=== PATIENT | male | born 1945 ===

== ENCOUNTER 2017-03-09 15:58 | Emergency (ER) | payer MEDICARE, BC ==
--- NOTE | 2017-03-09 17:39 | EDM.PDOC ---
<Owen Richmond Hubert - Last Filed: 03/09/17 17:33> ED HPI GENERAL MEDICAL PROBLEM - General Chief Complaint: Back Pain or Injury Stated Complaint: POSS BRUISED RIBS, [id number] Time Seen by Provider: 03/09/17 17:25 Source of Information: Reports: Patient History Limitations: Reports: No Limitations - History of Present Illness INITIAL COMMENTS - FREE TEXT/NARRATIVE: This 71 yo male patient reports to the ED with pain in his left back and posterior ribs. 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 Since that time , the patient has been experiencing increased pain in his left ribs and has been having a difficult time taking breaths due to increased pain. Onset: Today Onset Date: 03/09/17 Onset Time: 12:30 Duration: Constant Location: Reports: Chest, Back Quality: Reports: Ache, Sharp Severity: Moderate Improves with: Reports: None Worsens with: Reports: None Associated Symptoms: Reports: No Other Symptoms Left Middle Back Pain Score (Numeric/FACES): 10 - Related Data Allergies Allergy/AdvReac Type Severity Reaction Status Date / Time oxycodone Allergy Agitation Verified 03/09/17 16:14 Home Meds: Home Meds Simvastatin [Zocor] 20 mg PO DAILY 03/09/17 [History] Tamsulosin [Flomax] 0.4 mg PO DAILY 03/09/17 [History] Warfarin 6 mg PO ASDIRECTED 03/09/17 [History] Warfarin [Coumadin] 4 mg PO ASDIRECTED 03/09/17 [History] diphenhydrAMINE [Benadryl] 50 mg PO BEDTIME 03/09/17 [History] metFORMIN HCl [Metformin HCl] 1,000 mg PO DAILY 03/09/17 [History] Past Medical History Cardiovascular History: Reports: Afib, High Cholesterol, MO, Pacemaker Other Genitourinary History: frequency Endocrine/Metabolic History: Reports: Diabetes, Type II Other Endocrine/Metabolic History: pt states he does not have diabetes however he does take metformin 1000mg daily tells this play writer it is preventative only - Past Surgical History Other HEENT Surgeries/Procedures: surgery to remove cyst in neck Cardiovascular Surgical History: Reports: Cardiac Ablation, Pacer GI Surgical History: Reports: Appendectomy Musculoskeletal Surgical History: Reports: Shoulder Replacement Other Musculoskeletal Surgeries/Procedures:: right shoulder replacement; right collar bone surgery Social & Family History - Family History Family Medical History: Noncontributory - Tobacco Use Smoking Status *Q: Never Smoker Second Hand Smoke Exposure: No - Caffeine Use Caffeine Use: Reports: None - Recreational Drug Use Recreational Drug Use: No ED ROS GENERAL - Review of Systems Review Of Systems: ROS reveals no pertinent complaints other than HPI. ED EXAM, UPPER BACK/NECK PAIN - Physical Exam Exam: See Below Exam Limited By: No Limitations General Appearance: Alert, WD/WN, Moderate Distress, Obese Eye Exam: Bilateral Eye: EOMI, Normal Inspection, PERRL Ears Exam: Normal External Exam, Normal Canal, Hearing Grossly Normal, Normal TMs Nose Exam: Normal Inspection, Normal Mucousa, No Blood Throat/Mouth Exam: Normal Inspection, Normal Lips, Normal Teeth, Normal Gums, Normal Oropharynx, Normal Voice, No Airway Compromise Head Exam: Atraumatic, Normocephalic Neck Exam: Non-Tender, Full Range of Motion, Normal Alignment, Normal Inspection Nexus Criteria: No: Posterior, Midline Cervical Tenderness, Evidence of Intoxication, Altered Level of Consciousness, Focal Neurological Deficit, Painful Distraction Injuries Cardiovascular/Respiratory: Regular Rate, Rhythm, No M/R/G, Normal Peripheral Pulses, No JVD, Normal Breath Sounds, No Respiratory Distress GI/Abdominal: Normal Bowel Sounds, Soft, Non-Tender, No Organomegaly, No Distention, No Abnormal Bruit, No Mass Back Exam: Decreased Range of Motion, Other (pain to the left back (below the shoulder blade into the lower ribs)) Extremities: Normal Inspection, Normal Range of Motion, Non-Tender, No Pedal Edema, Normal Capillary Refill 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, No Motor/Sensory Deficits, Alert, Normal Mood/Affect, Oriented x 3 Psychiatric: Normal Affect, Normal Mood Skin Exam: Normal Color, Warm/Dry Lymphatic: No Adenopathy Course - Vital Signs Last Recorded V/S: Last Vital Signs Temp 98.0 F 03/09/17 17:53 Pulse 60 03/09/17 17:53 Resp 16 03/09/17 17:53 BP 135/74 03/09/17 17:53 Pulse Ox 96 03/09/17 17:53 Departure - Departure Disposition: Home, Self-Care 01 Clinical Impression: Rib pain on left side - Discharge Information Instructions: Muscle Strain, [id number], Pain Medicine Instructions, Easy-to- Read Forms: ED Department Discharge Additional Instructions: alternate cold and warm to back hydrocodone APAP 10/325 one half to one every 6 hours as needed for severe pain #10 tylenol 650-100mg every 6 hours as needed for moderate pain - No greater than 3000mg per 24 hour period Flexeril 10mg 1/2 -1 every 8 hours as needed for muscle spasm #10 Clinic follow up Thursday for recheck, incentive spirometer every 2 hours while awake <Mare Castañeda - Last Filed: 03/09/17 19:33> Departure - Departure Time of Disposition: 19:25 Condition: Fair
[2017-03-09 17:54] VITALS: BP 135/74
== END 2017-03-09 19:36 | disposition home or self-care (01) ==
LOC: DL.ED 15:58
DX: R07.81 Pleurodynia (principal); I48.91 Unspecified atrial fibrillation; E78.00 Pure hypercholesterolemia, unspecified; I25.2 Old myocardial infarction; E11.9 Type 2 diabetes mellitus without complications; Z98.890 Other specified postprocedural states; Z79.899 Other long term (current) drug therapy; Z79.01 Long term (current) use of anticoagulants; Z90.49 Acquired absence of other specified parts of digestive tract
CPT/HCPCS: 71101-LT; 99283